=== PATIENT | female | born 1965 | race Asian ===

== ENCOUNTER 2023-07-09 10:28 | Inpatient (IN) | payer BC, OTHER ==
[~2023-07-09] VITALS: Ht 154.9 cm; Wt 55.0 kg
[2023-07-09] MEDS ORDERED: TRAZ-283 PO (10:37)
[2023-07-09] MEDS ORDERED: ALBU18HF12 IH (10:37)
[2023-07-09] MEDS ORDERED: SIMV-46 PO (10:37)
[2023-07-09] MEDS ORDERED: FLUT12AE7 IH (10:37)
[2023-07-09] MEDS ORDERED: DAPA10TA PO (10:37)
[2023-07-09] MEDS ORDERED: HYDR-4584 PO (10:37)
[2023-07-09] MEDS ORDERED: SERT-438 PO (10:37)
[2023-07-09] MEDS ORDERED: TELM20TA8 PO (10:37)
[2023-07-09] MEDS ORDERED: PIOG15TA66 PO (10:37)
[2023-07-09] MEDS ORDERED: SITA1TBM4 PO (10:37)
[2023-07-09] MEDS ORDERED: FAMO40TA7 PO (10:37)
[2023-07-09] MEDS ORDERED: MORPHINE SULFATE 2 MG/ML SYRINGE IVP ONE (10:45)
[2023-07-09] MEDS ORDERED: IOHEXOL 300 MG/ML 100 ML VIAL ONE (10:51)
[2023-07-09] MEDS ORDERED: SODIUM CHLORIDE 0.9% 100 ML ONE (10:51)
[2023-07-09 11:04] LABS: BASOPHILS % (AUTO) 1.3 % (0.0-2.0); EOSINOPHILS % (AUTO) 6.9 % (1.0-6.0); HEMATOCRIT 45.4 % (36-46); HEMOGLOBIN 15.4 g/dL (12.0-16.0); LYMPHOCYTES % (AUTO) 33.5 % (22.0-44.0); MEAN CORPUSCULAR HGB CONC 33.9 G/dL (31.0-37.0); MEAN CORPUSCULAR VOLUME 89 fL (80-100); MONOCYTES # (AUTO) 0.7 K/uL (0.1-1.0); MONOCYTES % (AUTO) 7.5 % (2.0-9.0); NEUTROPHILS # (AUTO) 4.5 K/uL (1.8-7.7); NEUTROPHILS % (AUTO) 50.8 % (40.0-70.0); PLATELET COUNT (AUTO) 277 K/uL (150-450); RED BLOOD CELL COUNT(AUTO) 5.12 MIL/uL (4.00-5.20); RED CELL DISTRIBUTION WIDTH 13.9 % (11.5-14.5); WHITE BLOOD COUNT (AUTO) 8.8 K/uL (4.5-11.0)
[2023-07-09 11:21] LABS: TROPONIN I-HIGH SENSITIVITY 16 ng/L (<51)
[2023-07-09 11:25] LABS: ANION GAP 15 mmol/L (8-16); CALCIUM, TOTAL 10.1 mg/dL (8.8-10.5); CARBON DIOXIDE 22 mmol/L (22-29); CHLORIDE 99 mmol/L (98-107); CREATININE 0.75 mg/dL (0.60-1.30); GLOMERULAR FILTR. RATE CALC > 60 mL/min (>60); GLUCOSE,RANDOM 247 mg/dL (70-110); POTASSIUM 3.5 mmol/L (3.5-5.1); SODIUM SERUM 136 mmol/L (136-145); UREA NITROGEN, BLOOD 11 mg/dL (7-18)
[2023-07-09 11:29] LABS: ALANINE AMINOTRANSFERASE 38 U/L (12-78); ALBUMIN 4.2 g/dL (3.4-5.0); ALKALINE PHOSPHATASE 61 U/L (46-116); ASPARTATE AMINOTRANSFERASE 24 U/L (15-37); B-TYPE NATRIURETIC PEPTIDE 31 pg/mL (0-100); BILIRUBIN,TOTAL 0.5 mg/dL (0.1-1.0); CREATINE KINASE, TOTAL ONLY 69 U/L (26-192); TOTAL PROTEIN, SERUM 8.3 g/dL (6.4-8.2)
[2023-07-09] MEDS ORDERED: METOCLOPRAMIDE HCL 5 MG/ML 2 ML VIAL IVP ONE (11:30)
[2023-07-09] MEDS ORDERED: DiphenhydrAMINE HCL 50 MG/ML VIAL IVP ONE (11:30)
[2023-07-09 11:45] LABS: INR 1.1 (0.9-1.1); PROTHROMBIN TIME 11.4 SEC (9.4-11.6)
[2023-07-09 13:12] LABS: TROPONIN I-HIGH SENSITIVITY 259 ng/L (<51)
[2023-07-09] MEDS ORDERED: DEXTROSE 50%-WATER 25 GM/50 ML SYRINGE IVP PRN (13:30)
[2023-07-09] MEDS ORDERED: OxyCODONE HCL/ACETAMINOPHEN 5-325 MG TABLET PO PRN (13:30)
[2023-07-09] MEDS ORDERED: ASPIRIN 325 MG TABLET PO ONE (13:30)
[2023-07-09] MEDS ORDERED: MAGNESIUM HYDROXIDE SUSPENSION 30 ML UDCUP PO PRN (13:30)
[2023-07-09 13:59] LABS: APPEARANCE,URINE HAZY (CLEAR); BILIRUBIN,URINE NEGATIVE (NEGATIVE); COLOR,URINE LIGHT YELLOW (YELLOW); GLUCOSE, URINE (UA) >=1000 mg/dL (NEGATIVE); KETONES,URINE NEGATIVE (NEGATIVE); LEUKOCYTE ESTERASE ,URINE NEGATIVE (NEGATIVE); NITRATE,URINE POSITIVE (NEGATIVE); OCCULT BLOOD,URINE TRACE (NEGATIVE); PROTEIN,URINE 100-200,SEE CONFIRM mg/dL (NEGATIVE); SPECIFIC GRAVITIY, URINE 1.038 (1.003-1.030); UROBILINOGEN,URINE <=1.0 mg/dL (<=1.0)
[2023-07-09 14:07] LABS: SULFOSALICYLIC ACID,URINE 2+ (Negative); WBC,URINE 0-2 /HPF (0-5)
[2023-07-09 14:08] LABS: BACTERIA,URINE Many /HPF (None Seen)
[2023-07-09 15:14] VITALS: BP 127/64; PULSE 80; RESP 20; TEMP 98.2
[2023-07-09] MEDS ORDERED: HEPARIN SODIUM,PORCINE 5,000 UNITS/ML VIAL SQ SCH (16:00)
[2023-07-09] MEDS ORDERED: INFLUENZA VIRUS VACCINE QVS 2023-24 (6MO+)/PF 60 MCG/0.5 ML SYRINGE IM. ONE (16:00)
[2023-07-09] MEDS: ACETAMINOPHEN 325 MG TABLET PO PRN (16:32)
[2023-07-09 18:02] LABS: GLUCOMETER DEV NAME(LOC) 5N.2C; GLUCOSE,POINT OF CARE 104 MG/DL (70-110)
[2023-07-09 19:53] VITALS: BP 143/76; PULSE 75; RESP 18; TEMP 98.2
[2023-07-09 20:26] LABS: TROPONIN I-HIGH SENSITIVITY 735 ng/L (<51)
[2023-07-09] MEDS ORDERED: HEPARIN SODIUM,PORCINE 5,000 UNITS/ML VIAL IVP PRN ×2 (21:45)
[2023-07-09] MEDS ORDERED: HEPARIN SODIUM,PORCINE 5,000 UNITS/ML VIAL IVP ONE (21:45)
[2023-07-09] MEDS ORDERED: HEPARIN SODIUM 25000 UNITS/D5W 250 ML IV PRN (21:45)
[2023-07-09] MEDS ORDERED: ATORVASTATIN CALCIUM 40 MG TABLET PO ONE (21:45)
[2023-07-09] MEDS ORDERED: MELATONIN 5 MG TABLET PO PRN (22:00)
[2023-07-09] MEDS: METOPROLOL TARTRATE 25 MG TABLET PO SCH (22:02)
[2023-07-09] MEDS: INSULIN LISPRO 100 UNITS/ML SQ PRN (22:05)
[2023-07-09 22:09] LABS: BASOPHILS % (AUTO) 1.1 % (0.0-2.0); EOSINOPHILS % (AUTO) 5.5 % (1.0-6.0); HEMATOCRIT 46.6 % (36-46); HEMOGLOBIN 15.5 g/dL (12.0-16.0); LYMPHOCYTES % (AUTO) 25.7 % (22.0-44.0); MEAN CORPUSCULAR HEMOGLOBIN 29.3 pg (26.0-34.0); MEAN CORPUSCULAR HGB CONC 33.3 G/dL (31.0-37.0); MEAN CORPUSCULAR VOLUME 88 fL (80-100); MONOCYTES # (AUTO) 0.9 K/uL (0.1-1.0); MONOCYTES % (AUTO) 8.2 % (2.0-9.0); NEUTROPHILS # (AUTO) 6.8 K/uL (1.8-7.7); NEUTROPHILS % (AUTO) 59.5 % (40.0-70.0); PLATELET COUNT (AUTO) 291 K/uL (150-450); RED BLOOD CELL COUNT(AUTO) 5.29 MIL/uL (4.00-5.20); RED CELL DISTRIBUTION WIDTH 13.9 % (11.5-14.5); WHITE BLOOD COUNT (AUTO) 11.5 K/uL (4.5-11.0)
[2023-07-10] VITALS (18 sets, daily range): BP systolic 111–157; BP diastolic 61–97; PULSE 61–82; RESP 18; TEMP 97.8–98.2
[2023-07-10 06:45] LABS: EOSINOPHILS % (AUTO) 5.9 % (1.0-6.0); HEMATOCRIT 46.5 % (36-46); LYMPHOCYTES # (AUTO) 3.4 K/uL (1.0-4.8); LYMPHOCYTES % (AUTO) 28.6 % (22.0-44.0); MEAN CORPUSCULAR HEMOGLOBIN 30.2 pg (26.0-34.0); MEAN CORPUSCULAR HGB CONC 34.4 G/dL (31.0-37.0); MEAN CORPUSCULAR VOLUME 88 fL (80-100); MONOCYTES # (AUTO) 1.2 K/uL (0.1-1.0); MONOCYTES % (AUTO) 10.1 % (2.0-9.0); NEUTROPHILS # (AUTO) 6.4 K/uL (1.8-7.7); NEUTROPHILS % (AUTO) 54.4 % (40.0-70.0); PLATELET COUNT (AUTO) 300 K/uL (150-450); RED BLOOD CELL COUNT(AUTO) 5.31 MIL/uL (4.00-5.20); RED CELL DISTRIBUTION WIDTH 14.1 % (11.5-14.5); WHITE BLOOD COUNT (AUTO) 11.7 K/uL (4.5-11.0)
[2023-07-10 07:16] LABS: GLUCOMETER DEV NAME(LOC) 5S.1B; GLUCOSE,POINT OF CARE 131 MG/DL (70-110)
[2023-07-10] MEDS: ASPIRIN 81 MG CHEWABLE TABLET PO SCH (07:59)
[2023-07-10] MEDS: FAMOTIDINE 20 MG TABLET PO SCH (08:00)
[2023-07-10] MEDS: METOPROLOL TARTRATE 25 MG TABLET PO SCH ×2 (08:00→20:33)
[2023-07-10 08:11] LABS: GLUCOMETER DEV NAME(LOC) 5N.2C; GLUCOSE,POINT OF CARE 141 MG/DL (70-110)
[2023-07-10 11:32] LABS: TROPONIN I-HIGH SENSITIVITY 643 ng/L (<51)
[2023-07-10 12:11] LABS: GLUCOMETER DEV NAME(LOC) 5N.2C; GLUCOSE,POINT OF CARE 144 MG/DL (70-110)
[2023-07-10] MEDS ORDERED: IOHEXOL 300 MG/ML 100 ML VIAL ONE (14:44)
[2023-07-10] MEDS ORDERED: SODIUM BICARBONATE 50 MEQ/50 ML VIAL ONE (14:44)
[2023-07-10] MEDS ORDERED: LIDOCAINE/PF 1% 30 ML VIAL ONE (14:44)
[2023-07-10] MEDS ORDERED: HEPARIN SODIUM 1000 UNITS/NS 1,000 ML ONE (14:45)
[2023-07-10] MEDS ORDERED: VERAPAMIL HCL 2.5 MG/ML 2 ML VIAL ONE (14:47)
[2023-07-10] MEDS ORDERED: NITROGLYCERIN 50 MG/D5% WATER 250 ML ONE (14:47)
[2023-07-10] MEDS ORDERED: FentaNYL CITRATE PF 100 MCG/2 ML VIAL ONE (15:24)
[2023-07-10] MEDS ORDERED: MIDAZOLAM HCL 2 MG/2 ML VIAL ONE (15:24)
[2023-07-10] MEDS ORDERED: NITROGLYCERIN/D5W 50 MG/250 ML IV BOTTLE IARTER ONE (15:30)
[2023-07-10] MEDS ORDERED: HEPARIN SODIUM 1000 UNITS/NS 1,000 ML IARTER ONE (15:30)
[2023-07-10] MEDS ORDERED: LIDOCAINE 1% 30 ML/SOD BICARB 8.4% 4 ML SQ ONE (15:30)
[2023-07-10] MEDS ORDERED: IOHEXOL 300 MG/ML 100 ML VIAL IARTER ONE (15:30)
[2023-07-10] MEDS ORDERED: MIDAZOLAM HCL 2 MG/2 ML VIAL IVP ONE (15:30)
[2023-07-10] MEDS ORDERED: HEPARIN SODIUM,PORCINE 1,000 UNITS/ML 10 ML VIAL IARTER ONE (15:30)
[2023-07-10] MEDS ORDERED: VERAPAMIL HCL 2.5 MG/ML 2 ML VIAL IARTER ONE (15:30)
[2023-07-10] MEDS ORDERED: FentaNYL CITRATE PF 100 MCG/2 ML VIAL IVP ONE (15:30)
[2023-07-10] MEDS ORDERED: NITROGLYCERIN 0.4 MG SUBLINGUAL TABLET #25 SL PRN (16:15)
[2023-07-10] MEDS: INSULIN LISPRO 100 UNITS/ML SQ PRN ×2 (17:52→20:36)
[2023-07-10 18:31] LABS: GLUCOMETER DEV NAME(LOC) 5N.2C; GLUCOSE,POINT OF CARE 223 MG/DL (70-110)
[2023-07-10] MEDS ORDERED: ATORVASTATIN CALCIUM 40 MG TABLET PO SCH (21:00)
[2023-07-10] MEDS ORDERED: MELATONIN 5 MG TABLET PO PRN (21:15)
[2023-07-10] MEDS: ACETAMINOPHEN 325 MG TABLET PO PRN (21:36)
[2023-07-10 21:56] LABS: GLUCOMETER DEV NAME(LOC) 5N.2C; GLUCOSE,POINT OF CARE 229 MG/DL (70-110)
[2023-07-11] VITALS: BP 116/58; PULSE 68; RESP 18; TEMP 98.3
[2023-07-11 04:00] VITALS: BP 113/64; PULSE 65; RESP 18; TEMP 98
[2023-07-11] MEDS: ACETAMINOPHEN 325 MG TABLET PO PRN (04:28)
[2023-07-11] MEDS: INSULIN LISPRO 100 UNITS/ML SQ PRN (05:47)
[2023-07-11 06:26] LABS: GLUCOMETER DEV NAME(LOC) 5N.2C; GLUCOSE,POINT OF CARE 175 MG/DL (70-110)
[2023-07-11 06:46] LABS: EOSINOPHILS % (AUTO) 7.3 % (1.0-6.0); HEMATOCRIT 44.5 % (36-46); LYMPHOCYTES # (AUTO) 2.3 K/uL (1.0-4.8); LYMPHOCYTES % (AUTO) 23.7 % (22.0-44.0); MEAN CORPUSCULAR HGB CONC 33.8 G/dL (31.0-37.0); MEAN CORPUSCULAR VOLUME 89 fL (80-100); MONOCYTES % (AUTO) 10.8 % (2.0-9.0); NEUTROPHILS # (AUTO) 5.4 K/uL (1.8-7.7); NEUTROPHILS % (AUTO) 57.2 % (40.0-70.0); PLATELET COUNT (AUTO) 272 K/uL (150-450); RED BLOOD CELL COUNT(AUTO) 5.01 MIL/uL (4.00-5.20); RED CELL DISTRIBUTION WIDTH 14.1 % (11.5-14.5); WHITE BLOOD COUNT (AUTO) 9.5 K/uL (4.5-11.0)
[2023-07-11 07:14] LABS: ANION GAP 9 mmol/L (8-16); CALCIUM, TOTAL 9.1 mg/dL (8.8-10.5); CARBON DIOXIDE 30 mmol/L (22-29); CHLORIDE 101 mmol/L (98-107); CREATININE 0.65 mg/dL (0.60-1.30); GLOMERULAR FILTR. RATE CALC > 60 mL/min (>60); GLUCOSE,RANDOM 143 mg/dL (70-110); POTASSIUM 3.6 mmol/L (3.5-5.1); SODIUM SERUM 140 mmol/L (136-145); UREA NITROGEN, BLOOD 16 mg/dL (7-18)
[2023-07-11 08:00] VITALS: BP 118/58; PULSE 66; RESP 18; TEMP 98
[2023-07-11 09:00] VITALS: BP 122/71; PULSE 80; RESP 18; TEMP 98.3
[2023-07-11] MEDS ORDERED: CLOPIDOGREL BISULFATE 75 MG TABLET PO SCH (09:00)
[2023-07-11] MEDS: ASPIRIN 81 MG CHEWABLE TABLET PO SCH (09:13)
[2023-07-11] MEDS: FAMOTIDINE 20 MG TABLET PO SCH (09:13)
[2023-07-11] MEDS: METOPROLOL TARTRATE 25 MG TABLET PO SCH (09:13)
[2023-07-11 10:59] VITALS: BP 117/67; PULSE 65; RESP 18; TEMP 98
[2023-07-11] MEDS ORDERED: METO25 PO (12:06)
[2023-07-11] MEDS ORDERED: ASPI-1444 PO (12:07)
[2023-07-11] MEDS ORDERED: CIPR-279 PO (12:11)
[2023-07-11] MEDS ORDERED: CefTRIAXone 1 GM/DEXTROSE 50 ML IV ONE (13:00)
[2023-07-11 14:34] LABS: CHOL/HDL RATIO 2.2 (3.9-5.7); CHOLESTEROL 126 mg/dL (131-200); HDL CHOLESTEROL 57 mg/dL (40-60); LDL CHOL (CALC.) 49 mg/dL (0-130); TRIGLYCERIDES 99 mg/dL (15-150)
[2023-07-11 20:11] LABS: GLUCOMETER DEV NAME(LOC) 5N.2C; GLUCOSE,POINT OF CARE 170 MG/DL (70-110)
[2023-07-11 21:16] LABS: GLUCOMETER DEV NAME(LOC) 5N.1C; GLUCOSE,POINT OF CARE 118 MG/DL (70-110)
== END 2023-07-11 14:20 | disposition home or self-care (01) | DRG 282 ==
LOC: EMS 10:30 → AHU 13:42 → 5S 15:00
PROVIDERS: ADMIT Internal Medicine; ATTEND Internal Medicine
PROC: 4A023N7 Measurement of Cardiac Sampling and Pressure, Left Heart, Percutaneous Approach (ICD-10-PCS; principal; 2023-07-10)
PROC: B2111ZZ Fluoroscopy of Multiple Coronary Arteries using Low Osmolar Contrast (ICD-10-PCS; 2023-07-10)
DX: I21.4 Non-ST elevation (NSTEMI) myocardial infarction (principal); G44.309 Post-traumatic headache, unspecified, not intractable; E11.9 Type 2 diabetes mellitus without complications; I10 Essential (primary) hypertension; E78.00 Pure hypercholesterolemia, unspecified; Z79.84 Long term (current) use of oral hypoglycemic drugs; Z79.899 Other long term (current) drug therapy; Z88.8 Allergy status to other drugs, medicaments and biological substances; Z90.710 Acquired absence of both cervix and uterus; Z98.891 History of uterine scar from previous surgery; Z83.3 Family history of diabetes mellitus
CPT/HCPCS: 70450; 71275; 72125; 74175; 80048; 80053; 80061; 81001; 81002; 82550; 82962; 83880; 84484; 85025; 85610; 85730; 87086; 87186; 90686; 93005; 93306; 99291; G0378; J0696; J1200; J1644; J2250; J2270; J2765; J3010; J3490; J7050; Q9967